=== PATIENT | female | born 1975 | race Caucasian/White ===

== ENCOUNTER → 2019-01-30 | Emergency (ER) | payer OTHER ==
[~2019-01-30] VITALS: Ht 172.7 cm; Wt 74.8 kg
[~2019-01-30] MED LIST: CYCL10TA7 PO; IBUP-1561 PO; NITR-58 PO; RANI150T35 PO
[2019-01-30 11:09] VITALS: BP 126/88; PULSE 78; RESP 18; Ht 172.7 cm; Wt 74.8 kg
--- NOTE | 2019-01-30 13:45 | ERD ---
ER Documentation Chief Complaint Chief Complaint lt lower abd pain x 2 weeks HPI Is a 43-year-old female who presents with left-sided lower suprapubic pain for 2 weeks. She has no dysuria or hematuria but does have increased urinary frequency. No fever. No nausea vomiting or diarrhea. Last menstrual period was on 10 January. No alleviating or exacerbating factors. ROS All systems reviewed and are negative except as per history of present illness. Medications Home Meds Active Scripts Nitrofurantoin Monohyd Macrocr* (Macrobid*) 100 Mg Capsr, 100 MG PO BID for 7 Days, CAP Prov:MIGUEL ANGEL ROBBINS PA-C 01/30/19 Ibuprofen* (Motrin*) 400 Mg Tab, 400 MG PO Q6, #30 TAB Prov:JESUS VELARDE PA-C 09/03/18 Cyclobenzaprine Hcl* (Cyclobenzaprine Hcl*) 10 Mg Tablet, 10 MG PO TID, #15 TAB Prov:JESUS VELARDE PA-C 09/03/18 Ranitidine Hcl* (Zantac*) 150 Mg Tablet, 150 MG PO BID PRN for EPIGASTRIC PAIN, #30 TAB Prov:JESUS VELARDE PA-C 09/03/18 Allergies Allergies: Coded Allergies: No Known Allergy (Unverified , 09/03/18) PMhx/Soc Medical and Surgical Hx: pt denies Medical Hx History of Surgery: Yes (dc) Anesthesia Reaction: No Hx Alcohol Use: No Hx Substance Use: No Hx Tobacco Use: No Smoking Status: Never smoker FmHx Family History: No diabetes Physical Exam Vitals Vital Signs Date Temp Pulse Resp B/P (MAP) Pulse Ox O2 O2 Flow FiO2 Time Delivery Rate 01/30/19 98.2 78 18 126/88 100 11:09 (101) Physical Exam INITIAL VITAL SIGNS: Reviewed by me GENERAL: Awake, alert and oriented x 4, well appearing, nontoxic, speaking in full sentences. No acute distress RESPIRATORY: Clear to auscultation bilaterally. Symmetric chest wall rise. No wheezing or rales. No accessory muscle use. CV: Regular rate and rhythm. No murmurs, rubs, or gallops. ABDOMEN: Soft, non-distended. Nontender. Negative [place]. Negative McBurneys point tenderness. No CVA tenderness bilaterally. No guarding. No rebound. Result Diagram: 01/30/19 1213 01/30/19 1213 Results 24 hrs Laboratory Tests Test 01/30/19 12:13 01/30/19 12:20 White Blood Count 6.0 10^3/ul Red Blood Count 4.23 10^6/ul Hemoglobin 13.9 g/dl Hematocrit 41.3 % Mean Corpuscular Volume 97.6 fl Mean Corpuscular Hemoglobin 32.9 pg Mean Corpuscular Hemoglobin Concent 33.7 g/dl Red Cell Distribution Width 12.4 % Platelet Count 264 10^3/UL Mean Platelet Volume 10.5 fl Immature Granulocytes % 0.300 % Neutrophils % 60.4 % Lymphocytes % 29.4 % Monocytes % 8.2 % Eosinophils % 1.0 % Basophils % 0.7 % Nucleated Red Blood Cells % 0.0 /100WBC Immature Granulocytes # 0.020 10^3/ul Neutrophils # 3.6 10^3/ul Lymphocytes # 1.8 10^3/ul Monocytes # 0.5 10^3/ul Eosinophils # 0.1 10^3/ul Basophils # 0.0 10^3/ul Nucleated Red Blood Cells # 0.0 10^3/ul Urine Color STRAW Urine Clarity CLEAR Urine pH 6.0 Urine Specific Ethan 1.006 Urine Ketones NEGATIVE mg/dL Urine Nitrite NEGATIVE mg/dL Urine Bilirubin NEGATIVE mg/dL Urine Urobilinogen NEGATIVE mg/dL Urine Leukocyte Esterase 2+ Kaylynn/ul Urine Microscopic RBC 3 /HPF Urine Microscopic WBC 63 /HPF Urine Hemoglobin 2+ mg/dL Urine Glucose NEGATIVE mg/dL Urine Total Protein NEGATIVE mg/dl Sodium Level 136 mmol/L Potassium Level 4.1 mmol/L Chloride Level 102 mmol/L Carbon Dioxide Level 23 mmol/L Anion Gap 11 Blood Urea Nitrogen 10 mg/dl Creatinine 0.71 mg/dl Est Glomerular Filtrat Rate mL/min > 60 mL/min Glucose Level 90 mg/dl Calcium Level 9.5 mg/dl Total Bilirubin 0.8 mg/dl Direct Bilirubin 0.00 mg/dl Indirect Bilirubin 0.8 mg/dl Aspartate Amino Transf (AST/SGOT) 30 IU/L Alanine Aminotransferase (ALT/SGPT) 23 IU/L Alkaline Phosphatase 41 IU/L Total Protein 8.0 g/dl Albumin 4.5 g/dl Globulin 3.50 g/dl Albumin/Globulin Ratio 1.28 Lipase 82 U/L POC Beta HCG, Qualitative NEGATIVE Procedures/MDM The differential diagnosis includes but is not limited to appendicitis, cholelithiasis, cholecystitis, pancreatitis, hepatitis, gastritis, peptic ulcer disease, bowel obstruction, diverticulitis, renal disease including stones, torsion, AAA, pyelonephritis, and others. Laboratory analysis shows no evidence of acute emergent abnormality. No evidence of significant leukocytosis suggesti ng systemic infection or severe anemia. No evidence of acute renal or liver failure, no evidence of severe alkalosis or acidosis. Urine does show evidence of urinary tract infection. Pelvic ultrasound has small hemorrhagic cyst bilaterally and uterine fibroid. Patient discharged with Macrobid. Patient counseled regarding my diagnostic impression and care plan. Prior to discharge all questions answered. Pt agrees with treatment plan and understands strict return precautions. Pt is instructed to follow up with primary care provider within 24-48 hours. Precautionary instructions provided including instructions to return to the ER if not improving or for any worsening or changing symptoms or concerns. Departure Diagnosis: Primary Impression: Cystitis Condition: Stable Patient Instructions: Cystitis Additional Instructions: Call your primary care doctor TOMORROW for an appointment during the next 1-2 days.See the doctor sooner or return here if your condition worsens before your appointment time. MIGUEL ANGEL ROBBINS PA-C Jan 30, 2019 13:45
== END | disposition home or self-care (01) ==
LOC: FTE 11:03
DX: N30.90 Cystitis, unspecified without hematuria (principal)
CPT/HCPCS: 36415; 76830; 76856; 80053; 81001; 81025; 83690; 85025; Z7502